=== PATIENT | male | born 1965 | race Caucasian/White ===

== ENCOUNTER 2017-02-27 19:11 | Emergency (ER) | payer MEDICAID, MEDICARE ==
[2017-02-27 19:25] VITALS: BP 111/74; PULSE 70; RESP 15; TEMP 98.7; O2SAT 98
--- NOTE | 2017-02-27 19:52 | C.PDOC ---
History Of Present Illness 51 y/o male, with no significant PMHx, presents to the ED for evaluation of rash on his back and lower abdominal area that developed today. Pt denies rash to any other part of his body. As per sister, pt has been outdoors more frequently than usual for the last few days. Denies having similar rash in the past. Otherwise, denies any pain, itching, difficulty breathing, fever, chills, or any other associated symptoms at this time. Time Seen by Provider: 02/27/17 19:30 Chief Complaint (Nursing): Abnormal Skin Integrity History Per: Patient History/Exam Limitations: no limitations Onset/Duration Of Symptoms: Days Current Symptoms Are (Timing): Still Present Location Of Injury: Right: Back, Left: Back, Anterior: Abdomen, Posterior: Back Quality Of Symptoms: denies: Painful, Itching, Swollen, Draining Severity: None Pain Scale Rating Of: 0 Recent travel outside of the [place]: No Additional History Per: Patient Past Medical History Reviewed: Historical Data, Nursing Documentation, Vital Signs Vital Signs: Last Vital Signs Temp 98.7 F 02/27/17 19:22 Pulse 70 02/27/17 19:22 Resp 15 02/27/17 19:22 BP 111/74 02/27/17 19:22 Pulse Ox 98 02/27/17 21:09 - [facility] Procedures TETANUS TOXOID ADMINIST (01/04/13) Family History: States: Diabetes - Social History Hx Alcohol Use: No Hx Substance Use: No - Immunization History Hx Tetanus Toxoid Vaccination: Yes Hx Influenza Vaccination: No Hx Pneumococcal Vaccination: No Review Of Systems Except As Marked, All Systems Reviewed And Found Negative. Constitutional: Negative for: Fever, Chills Musculoskeletal: Negative for: Back Pain Skin: Positive for: Rash (back and lower abdomen) Physical Exam - Physical Exam Appears: Non-toxic, No Acute Distress Skin: Warm, Dry, Rash (diffuse fine erythematous macular rash to back, dry scaly erythematous rash to lower abdomen, no vesicles, or vesicular lesions) Neurological/Psych: Oriented x3, Normal Speech ED Course And Treatment O2 Sat by Pulse Oximetry: 98 (RA) Pulse Ox Interpretation: Normal Progress Note: Pt is being discharged home, and is instructed to f/u with PMD in 1-2 days. Disposition Counseled Patient/Family Regarding: Diagnosis, Need For Followup, Rx Given - Disposition Referrals: Dane,Amer K, MD [Medical Doctor] - Disposition: HOME/ ROUTINE Disposition Time: 19:49 Condition: STABLE Additional Instructions: Please follow up with PMD Keep cool Apply cream to area Return to ER if worse Prescriptions: Hydrocortisone 1% Cream [Cortizone 1% Cream] 1 appl TP BID #60 g Instructions: Dermatitis (ED) - Clinical Impression Clinical Impression: Dermatitis - PA / TRANSFER MAN / Resident Statement MD/DO has reviewed & agrees with the documentation as recorded. - Scribe Statement The provider has reviewed the documentation as recorded by the Scribe Troy Dallas All medical record entries made by the Abi were at my direction and personally dictated by me. I have reviewed the chart and agree that the record accurately reflects my personal performance of the history, physical exam, medical decision making, and the department course for this patient. I have also personally directed, reviewed, and agree with the discharge instructions and disposition.
== END 2017-02-27 19:59 | disposition home or self-care (01) ==
LOC: C.ER 19:11
DX: L30.9 Dermatitis, unspecified (principal)

== ENCOUNTER 2017-06-26 19:14 | Emergency (ER) | payer MEDICARE ==
[2017-06-26 19:19] VITALS: O2SAT 98
--- NOTE | 2017-06-26 20:03 | C.PDOC ---
History Of Present Illness 52 y/o male with a hx of mental retardation, was brought in by his parent c/o cough and fever associated with sneezing and rhinorrhea for 2 days. Parent notes the fever was persistent, which prompted this visit. (+) sick contact, relatives at home with cold symptoms. No chest pain or SOB. No abdominal pain or ear pain. Time Seen by Provider: 06/26/17 19:21 Chief Complaint (Nursing): Fever History Per: Patient, Family History/Exam Limitations: no limitations Current Symptoms Are (Timing): Still Present Sick Contacts (Context): Family Member(s) Associated Symptoms: Cough, Sinus Drainage Ear Symptoms: Bilateral: None Severity: Mild Recent travel outside of the [place]: No Additional History Per: Family Past Medical History Reviewed: Historical Data, Nursing Documentation, Vital Signs Vital Signs: Last Vital Signs Temp 100.6 F H 06/26/17 20:04 Pulse 91 H 06/26/17 20:04 Resp 18 06/26/17 20:04 BP 124/72 06/26/17 20:04 Pulse Ox 98 06/26/17 22:47 - [facility] Procedures TETANUS TOXOID ADMINIST (01/04/13) Family History: States: Diabetes - Social History Hx Alcohol Use: No Hx Substance Use: No - Immunization History Hx Tetanus Toxoid Vaccination: Yes Hx Influenza Vaccination: No Hx Pneumococcal Vaccination: No Review Of Systems Except As Marked, All Systems Reviewed And Found Negative. Constitutional: Positive for: Fever ENT: Positive for: Nose Discharge. Negative for: Ear Pain Cardiovascular: Negative for: Chest Pain Respiratory: Positive for: Cough. Negative for: Shortness of Breath Skin: Negative for: Rash Physical Exam - Physical Exam Appears: Non-toxic, No Acute Distress Skin: Warm, Dry, No Rash Head: Atraumatic, Normacephalic Eye(s): bilateral: Normal Inspection Ear(s): Bilateral: Normal Oral Mucosa: Moist Throat: Normal, No Erythema Neck: Normal Chest: Symmetrical Cardiovascular: Rhythm Regular, No Murmur Respiratory: Normal Breath Sounds, No Rales, No Rhonchi, No Wheezing Neurological/Psych: Oriented x3 ED Course And Treatment O2 Sat by Pulse Oximetry: 98 (RA) Pulse Ox Interpretation: Normal - Radiology CXR: Interpreted by Me CXR Interpretation: Yes: No Acute Disease. No: Infiltrates Progress Note: Plans: CXR, Tylenol. Patient is resting comfortably, tolerating Tylenol PO, and is afebrile at this time. Clinical signs and symptoms are not suggestive of sepsis, meningitis, UTI, pneumonia, intra-abdominal pathology, or cellulitis. Patient will be discharge home, and instructed to follow up with his /her physician in 1-2 days without fail. Patient was instructed to return for any worsening symptoms, persistent fever, neck pain, rash, abdominal pain, or vomiting. Disposition Counseled Patient/Family Regarding: Diagnosis, Need For Followup, Rx Given - Disposition Referrals: Laura Vela MD [Medical Doctor] - Disposition: HOME/ ROUTINE Disposition Time: 19:58 Condition: STABLE Additional Instructions: Take medications as directed Tylenol and advil for fever Increase PO fluids Please follow up with PMD Return to ER if worse Prescriptions: Benzonatate [Tessalon Perles] 100 mg PO TID #20 sgl Cetirizine HCl [Zyrtec] 10 mg PO DAILY #20 capsule Instructions: Upper Respiratory Infection (ED) - Clinical Impression Clinical Impression: Upper respiratory infection - Scribe Statement The provider has reviewed the documentation as recorded by the Scribe Pipe frankel All medical record entries made by the Scribe were at my direction and personally dictated by me. I have reviewed the chart and agree that the record accurately reflects my personal performance of the history, physical exam, medical decision making, and the department course for this patient. I have also personally directed, reviewed, and agree with the discharge instructions and disposition.
[2017-06-26 20:05] VITALS: BP 124/72; PULSE 91; RESP 18; TEMP 100.6
--- NOTE | 2017-06-27 08:44 | RAD ---
HISTORY: cough, fever COMPARISON: No prior. TECHNIQUE: Chest PA and lateral FINDINGS: LUNGS: No active pulmonary disease. PLEURA: No significant pleural effusion identified. No pneumothorax apparent. CARDIOVASCULAR: Normal. OSSEOUS STRUCTURES: No significant abnormalities. VISUALIZED UPPER ABDOMEN: Normal. OTHER FINDINGS: None. IMPRESSION: No active disease.
== END 2017-06-26 20:08 | disposition home or self-care (01) ==
LOC: C.ER 19:14
DX: J06.9 Acute upper respiratory infection, unspecified (principal)

== ENCOUNTER 2017-09-15 17:16 | Emergency (ER) | payer MEDICARE ==
[2017-09-15 17:31] VITALS: PULSE 70; TEMP 98.4; O2SAT 96
[2017-09-15] MEDS ORDERED: Tmp-Smz 800 mg-160 mg DS Tab PO STA (18:41)
--- NOTE | 2017-09-15 18:43 | C.PDOC ---
History Of Present Illness 52 year old male who is mentally challenged presents to the ER with his sister for evaluation of redness and swelling to his right ring finger for the past few days. As per sister, patient is known to bite his nails and fingers a lot. Sister denies patient has had fever or discharge from the finger. Time Seen by Provider: 09/15/17 18:02 Chief Complaint (Nursing): Finger,Hand,&Wrist History Per: Family History/Exam Limitations: clinical condition Onset/Duration Of Symptoms: Days Current Symptoms Are (Timing): Still Present Location Of Injury: Right: Hand Quality Of Symptoms: Swollen, Other (Redness) Recent travel outside of the [place]: No Past Medical History Reviewed: Historical Data, Nursing Documentation, Vital Signs Vital Signs: Last Vital Signs Temp 98.4 F 09/15/17 19:00 Pulse 70 09/15/17 19:00 Resp 18 09/15/17 19:00 BP 135/78 09/15/17 19:00 Pulse Ox 96 09/15/17 19:43 - [facility] Procedures TETANUS TOXOID ADMINIST (01/04/13) Family History: States: Diabetes - Social History Hx Alcohol Use: No Hx Substance Use: No - Immunization History Hx Tetanus Toxoid Vaccination: Yes Hx Influenza Vaccination: No Hx Pneumococcal Vaccination: No Review Of Systems Constitutional: Negative for: Fever Skin: Positive for: Other (Redness and swelling to right finger) Neurological: Negative for: Weakness, Numbness Physical Exam - Physical Exam Appears: Non-toxic, No Acute Distress Skin: Warm, Dry Head: Atraumatic, Normacephalic Eye(s): bilateral: Normal Inspection Neck: Normal ROM Chest: Symmetrical Extremity: Normal ROM, Capillary Refill (<2 seconds), No Deformity, Other ( Swelling, fluctuance and erythema to medial nail border of the right 4th digit.) Pulses: Left Radial: Normal, Right Radial: Normal Neurological/Psych: Normal Speech, Normal Motor, Normal Sensation ED Course And Treatment O2 Sat by Pulse Oximetry: 96 (Room air) Pulse Ox Interpretation: Normal - Incision & Drainage Of Abscess Prep Used: Betadine Procedure: Drained Pus (needle aspiration by 18gauge), Cultures Obtained And Sent To Lab Medical Decision Making Medical Decision Making: patient with paronychia to right 4th digit. Area cleansed with betadyne. Area drained by needle aspiration by 18gauge. Wound culture obtained. Bactrim PO was given. Patients wound was dressed. Patient given Rx. Disposition Counseled Patient/Family Regarding: Diagnosis, Need For Followup, Rx Given - Disposition Referrals: Laura Vela MD [Medical Doctor] - Disposition: HOME/ ROUTINE Disposition Time: 18:43 Condition: STABLE Additional Instructions: Keep area clean and dry. May wash gently with soap and water, change dressing daily. Take antibiotic twice a day Prescriptions: Sulfamethoxazole/Trimethoprim [Bactrim DS 800 mg-160 mg] 1 tab PO BID #14 tab Instructions: Paronychia (ED) Forms: [facility] (Greenlandic) - POA Present On Arrival: None - Clinical Impression Clinical Impression: Paronychia of right ring finger - PA / MANAGEMENT TECHNICIAN / Resident Statement MD/DO has reviewed & agrees with the documentation as recorded. - Scribe Statement The provider has reviewed the documentation as recorded by the Scribe Agustin Florian All medical record entries made by the Scribe were at my direction and personally dictated by me. I have reviewed the chart and agree that the record accurately reflects my personal performance of the history, physical exam, medical decision making, and the department course for this patient. I have also personally directed, reviewed, and agree with the discharge instructions and disposition.
[2017-09-15] MEDS ORDERED: Tmp-Smz 800 mg-160 mg DS Tab ONE (19:02)
[2017-09-15 19:17] VITALS: BP 135/78; RESP 18
== END 2017-09-15 19:02 | disposition home or self-care (01) ==
LOC: C.ER 17:16
DX: L03.011 Cellulitis of right finger (principal)

== ENCOUNTER 2018-06-06 16:41 | Emergency (ER) | payer MEDICARE ==
[2018-06-06 17:06] VITALS: RESP 20
[2018-06-06] MEDS ORDERED: Lidocaine 1% Inj (20ml) INFIL STA (17:16)
[2018-06-06] MEDS ORDERED: Bacitracin 500 Units/gm Oint Foilpak UD ONE (17:22)
[2018-06-06] MEDS ORDERED: Tdap Vaccine 0.5 ml Vial (10-64 yrs) IM ONE ×2 (17:31→18:09)
[2018-06-06] MEDS ORDERED: Bacitracin 500 Units/gm Oint Foilpak UD TOP ONE (17:31)
--- NOTE | 2018-06-06 17:35 | C.PDOC ---
History Of Present Illness 53 year old male presents to the ED with a family member for swelling to the right 5th finger for a few days. Family member notes the patient frequently bites his nails and gets infections to his distal fingers. Denies fever, numbness, tingling, and any other associated symptoms. Time Seen by Provider: 06/06/18 17:04 Chief Complaint (Nursing): Finger,Hand,&Wrist History Per: Patient, Family (family member.) History/Exam Limitations: no limitations Onset/Duration Of Symptoms: Days Current Symptoms Are (Timing): Still Present Past Medical History Reviewed: Historical Data, Nursing Documentation, Vital Signs Vital Signs: Last Vital Signs Temp 97.8 F 06/06/18 17:06 Pulse 88 06/06/18 17:06 Resp 20 06/06/18 17:06 BP 152/79 H 06/06/18 17:06 Pulse Ox 96 06/06/18 17:06 - [facility] Procedures TETANUS TOXOID ADMINIST (01/04/13) Family History: States: Diabetes - Social History Hx Alcohol Use: No Hx Substance Use: No - Immunization History Hx Tetanus Toxoid Vaccination: No Hx Influenza Vaccination: No Hx Pneumococcal Vaccination: No Review Of Systems Constitutional: Negative for: Fever Cardiovascular: Negative for: Chest Pain Respiratory: Negative for: Cough, Shortness of Breath, SOB with Excertion, Wheezing Gastrointestinal: Negative for: Nausea, Vomiting, Abdominal Pain, Diarrhea, Constipation Musculoskeletal: Positive for: Other (swelling to the proximal nail fold of right 5th finger.) Neurological: Negative for: Weakness, Numbness, Incoordination Physical Exam - Physical Exam Appears: Well, Non-toxic Skin: Warm, Dry, No Other (right 5th digit: swelling proximal to proximal nail fold (-) erythema. (-) discharge. (+) All nails have onychomycosis. ) Head: Atraumatic, Normacephalic Extremity: Normal ROM (to the right hand and digits. ), Capillary Refill (less than 2 seconds.), Swelling (to the right 5th digit proximal nail bed) Neurological/Psych: Oriented x3, Normal Speech, Normal Motor, Normal Sensation, Normal Reflexes Gait: Steady ED Course And Treatment O2 Sat by Pulse Oximetry: 96 (RA) Pulse Ox Interpretation: Normal Medical Decision Making Medical Decision Making: Plan: -Applied Bacitracin. Tetanus vaccination. Presentation seemed consistent with paronchyia. However, after I used 11 blade to elevate the nail fold there was no return of discharge. Instead there white skin that immediately sloughed off. No drainage. Instructed on the impor tance of stopping biting nails. Instructed on importance of keep wound clean and covered and taking antibiotics. Wound was dressed after bacitracin was applied. Instructed to follow-up with PMD for chronic fungal infections on nails. Disposition - Disposition Disposition: HOME/ ROUTINE Disposition Time: 17:58 Condition: GOOD Additional Instructions: Follow-up with PMD within 2 days. Return to ED if condition worsens. Take full course of antibiotics Prescriptions: Clindamycin [Cleocin] 300 mg PO TID #30 cap Instructions: Fungal Nail Infections, Wound Care Forms: [facility] (Amharic) - Clinical Impression Clinical Impression: Finger swelling, Onychomycosis, Finger wound, simple, open - Scribe Statement The provider has reviewed the documentation as recorded by the Scribe (Vianney Uribe) Provider Attestation: All medical record entries made by the Scribe were at my direction and personally dictated by me. I have reviewed the chart and agree that the record accurately reflects my personal performance of the history, physical exam, medical decision making, and the department course for this patient. I have also personally directed, reviewed, and agree with the discharge instructions and disposition.
[2018-06-06 17:44] VITALS: BP 114/80; PULSE 76; TEMP 98.3
[2018-06-06 18:01] VITALS: O2SAT 96
== END 2018-06-06 18:13 | disposition home or self-care (01) ==
LOC: C.ER 16:41
DX: B35.1 Tinea unguium (principal); S61.206A Unspecified open wound of right little finger without damage to nail, initial encounter; X58.XXXA Exposure to other specified factors, initial encounter; Z23 Encounter for immunization; M79.89 Other specified soft tissue disorders